=== PATIENT | male | born 1950 | race Caucasian/White ===

== ENCOUNTER 2017-03-31 12:23 | Day surgery (SDC) | payer OTHER ==
[~2017-03-31] VITALS: Ht 175.3 cm; Wt 78.7 kg
[2017-03-31 12:51] VITALS: Ht 175.3 cm; Wt 78.7 kg
[2017-03-31] MEDS ORDERED: ATORVASTATIN (12:59)
[2017-03-31] MEDS ORDERED: DILTIAZEM (12:59)
[2017-03-31 13:09] VITALS: BP 117/78; PULSE 61; RESP 24
[2017-03-31] MEDS ORDERED: MIDAZOLAM 1 MG/ML 2 ML INJ ONE (14:50)
[2017-03-31] MEDS ORDERED: PROPOFOL 20 ML ONE (14:50)
--- NOTE | 2017-03-31 15:21 | OPPN ---
Date/Time of Note Date/Time of Note DATE: 03/31/17 TIME: 15:19 Operative Report Preoperative Diagnosis Screening Positive occult blood in stool Postoperative Diagnosis Rectal polyp was removed Internal hemorrhoids Operation/Procedure Performed Colonoscopy and biopsy Provider: AFSHIN NOYOLA MD Anesthesia Type: MAC Estimated blood loss: none Transfusion Required: no Specimens Rectal polyp Grafts/Implants: none Complications: no AFSHIN NOYOLA MD Mar 31, 2017 15:20
[2017-03-31 15:45] VITALS: BP 104/71; PULSE 64; RESP 24
--- NOTE | 2017-03-31 17:04 | GILP ---
DATE OF PROCEDURE: 03/31/2017 PROCEDURE PERFORMED: Colonoscopy and biopsy. SURGEON: Savannah Moreira MD. PREOPERATIVE DIAGNOSIS: 1. Screening colonoscopy. 2. Positive occult blood in stool. POSTOPERATIVE DIAGNOSES: 1. Colonoscopy all the way to the cecum. 2. Small rectal polyp was removed using the biopsy forceps. 3. Internal hemorrhoids. INDICATION: The patient is a 66-year-old male patient, who was noted to have positive occult blood in stool. He never had a screening colonoscopy. The procedure and possible complications were well explained to the patient. He understood and consented to the procedure. DESCRIPTION OF PROCEDURE: Under influence of anesthesia, the colonoscope was carefully introduced in the rectum, and under direct vision, it was advanced all the way to the cecum. FINDINGS: The patient had a small rectal polyp and it was removed using the biopsy forceps. He had internal hemorrhoids. He tolerated the procedure very well, and there was no complication from the procedure. At the end of procedure, he was awake with stable vital signs and he was discharged home in the care of his family. IMPRESSION: Please see postop diagnoses. PLAN: Screening colonoscopy in 10 years. Dictated By: MD TA Paula/[email or web address]/[email or web address] /Document#: [id number]
== END 2017-03-31 17:17 | disposition home or self-care (01) ==
LOC: GIL 12:23
PROVIDERS: ATTEND Internal Medicine Gastroenterology
DX: K92.1 Melena (principal); K62.1 Rectal polyp; K64.8 Other hemorrhoids; E78.5 Hyperlipidemia, unspecified; I27.2 Other secondary pulmonary hypertension
CPT/HCPCS: 45380; 88305; J2250; Z7610